=== PATIENT | male | born 1940 | race Caucasian/White ===

== ENCOUNTER 2019-02-22 15:30 | Inpatient (IN) | payer BC, OTHER ==
[~2019-02-22] VITALS: Ht 167.6 cm; Wt 62.6 kg
[2019-02-22 15:30] VITALS: BP_SYST 156
[2019-02-22] MEDS ORDERED: NS 500 ML IV ONE (16:30)
[2019-02-22 16:35] LABS: BASOPHILS % (AUTO) 0.4 % (0.0-2.0); EOSINOPHILS # (AUTO) 0.1 K/uL (0.0-0.4); EOSINOPHILS % (AUTO) 1.5 % (0.0-4.0); HEMATOCRIT 31.5 % (36-54); HEMOGLOBIN 10.1 g/dL (14.0-18.0); LYMPHOCYTES # (AUTO) 0.5 K/uL (1.0-5.5); LYMPHOCYTES % (AUTO) 6.5 % (20.5-51.5); MEAN CORPUSCULAR HEMOGLOBIN 26 pg (27-31); MEAN CORPUSCULAR HGB CONC 32 % (32-36); MEAN CORPUSCULAR VOLUME 81 fL (79.0-98.0); MONOCYTES # (AUTO) 0.5 K/uL (0.0-1.0); MONOCYTES % (AUTO) 5.9 % (1.7-9.3); NEUTROPHILS # (AUTO) 6.8 K/uL (1.8-7.7); NEUTROPHILS % (AUTO) 85.7 % (40.0-70.0); PLATELET COUNT (AUTO) 211 K/uL (130-430); RED BLOOD CELL COUNT(AUTO) 3.89 MIL/uL (4.2-6.2); WHITE BLOOD COUNT (AUTO) 7.9 K/uL (4.8-10.8)
[2019-02-22] MEDS ORDERED: cefTRIAXone 1 GM in D5W 50 ML IV ONE (16:45)
[2019-02-22 16:51] LABS: ANION GAP 10 (5-15); CALCIUM 8.7 mg/dL (8.4-11.0); CHLORIDE 100 mmol/L (98-107); CREATININE 6.51 mg/dL (0.55-1.30); GLUCOSE 108 mg/dL (70-99); POTASSIUM 4.3 mmol/L (3.5-5.1); SODIUM SERUM 137 mmol/L (136-145); UREA NITROGEN, BLOOD 34 mg/dL (8-21)
[2019-02-22 17:03] LABS: ALBUMIN 2.6 g/dL (3.4-4.8); ASPARTATE AMINOTRANSFERASE 11 U/L (10-37); TOTAL BILIRUBIN 0.6 mg/dL (0.0-1.0)
[2019-02-22] MEDS ORDERED: cefTRIAXone 1 GM VIAL ONE (17:04)
[2019-02-22 17:13] LABS: ALANINE AMINOTRANSFERASE 4 U/L (12-78)
[2019-02-22 20:32] VITALS: BP_SYST 155
[2019-02-22] MEDS ORDERED: METO-542 PO (21:08)
[2019-02-22] MEDS ORDERED: CALC667T5 PO (21:08)
[2019-02-22] MEDS ORDERED: VANCOMYCIN HCL 1 GM/NS PREMIX 250 ML IV ONE (21:30)
[2019-02-22] MEDS ORDERED: ZOLPIDEM TARTRATE 5 MG TABLET PO PRN (21:30)
[2019-02-22] MEDS ORDERED: VANCOMYCIN HCL 1 GM/NS PREMIX 250 ML IV SCH (22:00)
[2019-02-23] VITALS (8 sets, daily range): BP systolic 108–168
[2019-02-23] MEDS: VANCOMYCIN HCL 1000 MG/VIAL IV ONE ×2 (00:41→00:44)
[2019-02-23] MEDS ORDERED: METOPROLOL TARTRATE 50 MG TABLET PO ONE (01:00)
[2019-02-23] MEDS: ACETAMINOPHEN 325 MG TABLET PO PRN ×2 (02:58→03:06)
[2019-02-23 06:24] LABS: HEMATOCRIT 31.4 % (36-54); HEMOGLOBIN 10.1 g/dL (14.0-18.0); MEAN CORPUSCULAR HEMOGLOBIN 26 pg (27-31); MEAN CORPUSCULAR HGB CONC 32 % (32-36); MEAN CORPUSCULAR VOLUME 81 fL (79.0-98.0); RED BLOOD CELL COUNT(AUTO) 3.87 MIL/uL (4.2-6.2); RED CELL DISTRIBUTION WIDTH 16.5 % (9.0-15.0); WHITE BLOOD COUNT (AUTO) 9.4 K/uL (4.8-10.8)
[2019-02-23 06:47] LABS: ALANINE AMINOTRANSFERASE 6 U/L (12-78); ALBUMIN 2.5 g/dL (3.4-4.8); ANION GAP 6 (5-15); ASPARTATE AMINOTRANSFERASE 13 U/L (10-37); CALCIUM 8.6 mg/dL (8.4-11.0); CHLORIDE 102 mmol/L (98-107); GLUCOSE 107 mg/dL (70-99); POTASSIUM 4.5 mmol/L (3.5-5.1); SODIUM SERUM 135 mmol/L (136-145); TOTAL BILIRUBIN 0.6 mg/dL (0.0-1.0); UREA NITROGEN, BLOOD 46 mg/dL (8-21)
[2019-02-23 06:50] LABS: CREATININE 8.05 mg/dL (0.55-1.30)
[2019-02-23] MEDS: FAMOTIDINE 20 MG TABLET PO SCH (08:28)
[2019-02-23 09:25] LABS: PLATELET COUNT (AUTO) 229 K/uL (130-430)
[2019-02-23] MEDS ORDERED: NIFE-2 PO (11:29)
[2019-02-23] MEDS ORDERED: *CUBICIN 6 MG/KG Q48H/PHARMACY XX PRN (11:45)
[2019-02-23] MEDS: CEFEPIME 1 GM in D5W 50 ML IV SCH (12:19)
[2019-02-23] MEDS: NS IV SCH (13:15)
[2019-02-23] MEDS: DAPTOMYCIN IV SCH (13:15)
[2019-02-24 06:10] LABS: BASOPHILS % (AUTO) 0.6 % (0.0-2.0); EOSINOPHILS # (AUTO) 0.6 K/uL (0.0-0.4); EOSINOPHILS % (AUTO) 8.9 % (0.0-4.0); HEMATOCRIT 29.2 % (36-54); HEMOGLOBIN 9.5 g/dL (14.0-18.0); LYMPHOCYTES # (AUTO) 1.1 K/uL (1.0-5.5); LYMPHOCYTES % (AUTO) 16.8 % (20.5-51.5); MEAN CORPUSCULAR HEMOGLOBIN 26 pg (27-31); MEAN CORPUSCULAR HGB CONC 32 % (32-36); MEAN CORPUSCULAR VOLUME 81 fL (79.0-98.0); MONOCYTES # (AUTO) 0.5 K/uL (0.0-1.0); MONOCYTES % (AUTO) 7.7 % (1.7-9.3); NEUTROPHILS # (AUTO) 4.4 K/uL (1.8-7.7); PLATELET COUNT (AUTO) 238 K/uL (130-430); RED BLOOD CELL COUNT(AUTO) 3.61 MIL/uL (4.2-6.2); RED CELL DISTRIBUTION WIDTH 16.4 % (9.0-15.0); WHITE BLOOD COUNT (AUTO) 6.7 K/uL (4.8-10.8)
[2019-02-24 06:18] LABS: ANION GAP 9 (5-15); CALCIUM 8.7 mg/dL (8.4-11.0); CHLORIDE 101 mmol/L (98-107); GLUCOSE 97 mg/dL (70-99); POTASSIUM 4.7 mmol/L (3.5-5.1); SODIUM SERUM 136 mmol/L (136-145); UREA NITROGEN, BLOOD 72 mg/dL (8-21)
[2019-02-24 06:22] LABS: CREATININE 10.19 mg/dL (0.55-1.30)
[2019-02-24 08:41] VITALS: BP_SYST 145
[2019-02-24] MEDS: FAMOTIDINE 20 MG TABLET PO SCH (08:48)
[2019-02-24 12:00] VITALS: BP_SYST 141
[2019-02-24] MEDS ORDERED: HEPARIN SODIUM,PORCINE 5000 UNITS/ML VIAL MC ONE (12:45)
[2019-02-24] MEDS: CEFEPIME 1 GM in D5W 50 ML IV SCH (14:45)
[2019-02-24 17:14] VITALS: BP_SYST 157
[2019-02-24 20:03] VITALS: BP_SYST 143
[2019-02-25 02:37] VITALS: BP_SYST 157
[2019-02-25 07:50] VITALS: BP_SYST 141
[2019-02-25 08:10] LABS: HEPATITIS A AB, IgM Negative (Negative); HEPATITIS B CORE AB, IgM Negative (Negative); HEPATITIS B SURFACE AG Negative (Negative)
[2019-02-25] MEDS: FAMOTIDINE 20 MG TABLET PO SCH (08:34)
[2019-02-25] MEDS: NS IV SCH (12:22)
[2019-02-25] MEDS: DAPTOMYCIN IV SCH (12:22)
[2019-02-25] MEDS: CEFEPIME 1 GM in D5W 50 ML IV SCH (12:22)
[2019-02-25 13:16] VITALS: BP_SYST 128
[2019-02-25 17:04] VITALS: BP_SYST 145
[2019-02-25 20:00] VITALS: BP_SYST 146
[2019-02-26 00:41] VITALS: BP_SYST 143
[2019-02-26 07:44] VITALS: BP_SYST 165
[2019-02-26] MEDS: cloNIDine HCL 0.1 MG TABLET PO PRN ×2 (08:00→18:09)
[2019-02-26] MEDS: FAMOTIDINE 20 MG TABLET PO SCH (08:01)
[2019-02-26 11:12] VITALS: BP_SYST 138
[2019-02-26] MEDS: CEFEPIME 1 GM in D5W 50 ML IV SCH (14:00)
[2019-02-26 18:05] VITALS: BP_SYST 166
[2019-02-26 20:00] VITALS: BP_SYST 145
[2019-02-27 00:03] VITALS: BP_SYST 152
[2019-02-27 06:51] LABS: BASOPHILS # (AUTO) 0.1 K/uL (0.0-0.2); BASOPHILS % (AUTO) 0.7 % (0.0-2.0); EOSINOPHILS # (AUTO) 0.6 K/uL (0.0-0.4); EOSINOPHILS % (AUTO) 8.3 % (0.0-4.0); HEMOGLOBIN 9.3 g/dL (14.0-18.0); LYMPHOCYTES % (AUTO) 12.6 % (20.5-51.5); MEAN CORPUSCULAR HEMOGLOBIN 26 pg (27-31); MEAN CORPUSCULAR HGB CONC 32 % (32-36); MEAN CORPUSCULAR VOLUME 81 fL (79.0-98.0); MONOCYTES # (AUTO) 0.5 K/uL (0.0-1.0); MONOCYTES % (AUTO) 6.2 % (1.7-9.3); NEUTROPHILS # (AUTO) 5.5 K/uL (1.8-7.7); NEUTROPHILS % (AUTO) 72.2 % (40.0-70.0); PLATELET COUNT (AUTO) 267 K/uL (130-430); RED BLOOD CELL COUNT(AUTO) 3.57 MIL/uL (4.2-6.2); RED CELL DISTRIBUTION WIDTH 16.8 % (9.0-15.0); WHITE BLOOD COUNT (AUTO) 7.6 K/uL (4.8-10.8)
[2019-02-27 07:06] LABS: ALANINE AMINOTRANSFERASE 13 U/L (12-78); ANION GAP 14 (5-15); ASPARTATE AMINOTRANSFERASE 19 U/L (10-37); CALCIUM 8.1 mg/dL (8.4-11.0); CHLORIDE 104 mmol/L (98-107); GLUCOSE 125 mg/dL (70-99); SODIUM SERUM 138 mmol/L (136-145); TOTAL BILIRUBIN 0.4 mg/dL (0.0-1.0); UREA NITROGEN, BLOOD 86 mg/dL (8-21)
[2019-02-27 07:16] LABS: CREATININE 12.24 mg/dL (0.55-1.30); POTASSIUM 5.8 mmol/L (3.5-5.1)
[2019-02-27 07:45] VITALS: BP_SYST 140
[2019-02-27] MEDS: FAMOTIDINE 20 MG TABLET PO SCH (09:05)
[2019-02-27] MEDS ORDERED: HEPARIN SODIUM,PORCINE 5000 UNITS/ML VIAL MC SCH ×2 (11:00→11:15)
[2019-02-27] MEDS ORDERED: ALTEPLASE 2 MG VIAL MC ONE ×2 (13:15)
[2019-02-27] MEDS: CEFEPIME 1 GM in D5W 50 ML IV SCH (13:24)
[2019-02-27] MEDS: DAPTOMYCIN IV SCH (13:26)
[2019-02-27] MEDS: NS IV SCH (13:26)
[2019-02-27 20:00] VITALS: BP_SYST 139
[2019-02-28 00:08] VITALS: BP_SYST 142
[2019-02-28 08:29] VITALS: BP_SYST 156
[2019-02-28] MEDS: FAMOTIDINE 20 MG TABLET PO SCH (08:38)
[2019-02-28 10:12] LABS: WEST NILE VIRUS, IgG, SERUM Negative (Negative)
[2019-02-28] MEDS: CEFEPIME 1 GM in D5W 50 ML IV SCH (12:03)
[2019-02-28 12:11] VITALS: BP_SYST 150
[2019-02-28 14:06] LABS: MYCOPLASMA PNEUMONIAE IgM <770 U/mL (0-769)
[2019-02-28 16:42] VITALS: BP_SYST 148
[2019-02-28] MEDS ORDERED: *CUBICIN 6 MG/KG Q48H/PHARMACY XX PRN (16:45)
[2019-02-28] MEDS ORDERED: MORPHINE 4 MG/ML INJ. SYRINGE IVP ONE (19:30)
[2019-02-28] MEDS ORDERED: LIDOCAINE 1% 10 MG/ML, 20 ML MDV INJ ONE (19:45)
[2019-02-28 20:00] VITALS: BP_SYST 160
[2019-03-01 01:49] VITALS: BP_SYST 154
[2019-03-01 08:04] VITALS: BP_SYST 126
[2019-03-01] MEDS: FAMOTIDINE 20 MG TABLET PO SCH (08:15)
[2019-03-01 11:21] VITALS: BP_SYST 126
[2019-03-01 11:28] VITALS: BP_SYST 168
[2019-03-01] MEDS ORDERED: CEFEPIME 1 GM in D5W 50 ML IV SCH (12:00)
[2019-03-01] MEDS ORDERED: DAPTOMYCIN IV SCH (13:00)
[2019-03-01] MEDS ORDERED: NS IV SCH (13:00)
== END 2019-03-01 12:15 | disposition home or self-care (01) | DRG 314 ==
LOC: SED 15:30 → STU 18:46 → SMU 02-23 16:26
PROVIDERS: ADMIT Internal Medicine; ATTEND Internal Medicine Hospice and Palliative Medicine
PROC: 5A1D70Z Performance of Urinary Filtration, Intermittent, Less than 6 Hours Per Day (ICD-10-PCS; principal; 2019-02-24)
PROC: 5A1D70Z Performance of Urinary Filtration, Intermittent, Less than 6 Hours Per Day (ICD-10-PCS; 2019-02-27)
PROC: 5A1D70Z Performance of Urinary Filtration, Intermittent, Less than 6 Hours Per Day (ICD-10-PCS; 2019-02-28)
DX: T80.211A Bloodstream infection due to central venous catheter, initial encounter (principal); A41.2 Sepsis due to unspecified staphylococcus; N18.6 End stage renal disease; J18.9 Pneumonia, unspecified organism; I12.0 Hypertensive chronic kidney disease with stage 5 chronic kidney disease or end stage renal disease; E44.0 Moderate protein-calorie malnutrition; J44.0 Chronic obstructive pulmonary disease with (acute) lower respiratory infection; D64.9 Anemia, unspecified; I25.10 Atherosclerotic heart disease of native coronary artery without angina pectoris; I73.9 Peripheral vascular disease, unspecified; Y83.8 Other surgical procedures as the cause of abnormal reaction of the patient, or of later complication, without mention of misadventure at the time of the procedure; Y92.89 Other specified places as the place of occurrence of the external cause; Z95.1 Presence of aortocoronary bypass graft; Z68.22 Body mass index [BMI] 22.0-22.9, adult; Z99.2 Dependence on renal dialysis
CPT/HCPCS: 36415; 71045; 76700-TC; 80048; 80053; 80074; 82550-TC; 83605; 83880; 84484; 85007; 85025; 85027; 85651-TC; 86738; 86788; 86789; 87040-TC; 87070-TC; 87081; 87186-TC; 87205-TC; 90935; 90937; 93005; 96365; 97110-GP; 97116-GP; 97530-GP; 99285; G0378; J0692; J0696; J0878; J1644; J2270; J2997; J3370; J7030; J7060